=== PATIENT | female | born 1995 | race Caucasian/White ===

== ENCOUNTER 2018-11-20 06:05 | Inpatient (IN) | payer BC ==
[~2018-11-20] VITALS: Ht 152.4 cm; Wt 52.7 kg
[~2018-11-20 06:05] MED LIST: HYDACE5 PO
[2018-11-20] MEDS ORDERED: Verotin-Gr Cap1 EACH (06:16)
[2018-11-20 06:23] LABS: BASOPHILS ABSOLUTE AUTO 0.02 K/mm3 (0.00-0.23); BASOPHILS PERCENT AUTO 0 % (0-2); EOSINOPHILS ABSOLUTE AUTO 0.07 K/mm3 (0.00-0.68); EOSINOPHILS PERCENT AUTO 1 % (0-6); Hematocrit 32.2 % (33.0-51.0); Hemoglobin 10.9 g/dL (11.5-16.0); IMMATURE GRAN ABSOLUTE AUTO 0.14 K/mm3 (0.00-0.10); IMMATURE GRAN PERCENT AUTO 1 % (0-1); LYMPHOCYTES ABSOLUTE AUTO 1.85 K/mm3 (0.84-5.20); LYMPHOCYTES PERCENT AUTO 16 % (21-46); MONOCYTES ABSOLUTE AUTO 0.66 K/mm3 (0.16-1.47); MONOCYTES PERCENT AUTO 6 % (4-13); Mean Corpuscular HGB 31.2 pg (26.0-34.0); Mean Corpuscular HGB Conc 33.9 g/dL (31.5-36.5); Mean Corpuscular Volume 92 fL (80-100); Mean Platelet Volume 10.7 fL (9.1-12.4); NEUTROPHILS ABSOLUTE AUTO 8.73 K/mm3 (1.96-9.15); NEUTROPHILS PERCENT AUTO 76 % (41-73); Platelet Count 228 K/mm3 (150-400); RDW Standard Deviation 42.9 fL (35.1-46.3); Red Blood Cell Count 3.49 M/mm3 (3.80-5.20); White Blood Cell Count 11.47 K/mm3 (4.00-11.30)
[2018-11-21] MEDS ORDERED: IBUP800 (08:31)
--- NOTE | 2018-11-21 09:13 | NUR ---
UP TO AMBULATE WITH ASSIST. PP VOID #2. PT FEELS BETTER AMBULATING, STATES CAN DO ALONE NOW.
[2018-11-22 06:07] LABS: BASOPHILS ABSOLUTE AUTO 0.04 K/mm3 (0.00-0.23); BASOPHILS PERCENT AUTO 0 % (0-2); EOSINOPHILS PERCENT AUTO 1 % (0-6); Hematocrit 25.9 % (33.0-51.0); Hemoglobin 8.5 g/dL (11.5-16.0); IMMATURE GRAN ABSOLUTE AUTO 0.13 K/mm3 (0.00-0.10); IMMATURE GRAN PERCENT AUTO 1 % (0-1); LYMPHOCYTES ABSOLUTE AUTO 2.36 K/mm3 (0.84-5.20); LYMPHOCYTES PERCENT AUTO 18 % (21-46); MONOCYTES ABSOLUTE AUTO 0.84 K/mm3 (0.16-1.47); MONOCYTES PERCENT AUTO 6 % (4-13); Mean Corpuscular HGB 30.6 pg (26.0-34.0); Mean Corpuscular HGB Conc 32.8 g/dL (31.5-36.5); Mean Corpuscular Volume 93 fL (80-100); NEUTROPHILS ABSOLUTE AUTO 9.91 K/mm3 (1.96-9.15); NEUTROPHILS PERCENT AUTO 74 % (41-73); Platelet Count 173 K/mm3 (150-400); RDW Standard Deviation 44.2 fL (35.1-46.3); Red Blood Cell Count 2.78 M/mm3 (3.80-5.20); White Blood Cell Count 13.38 K/mm3 (4.00-11.30)
--- NOTE | 2018-11-22 10:05 | NUR ---
D/C HOME WITH INSTRUCTIONS
== END 2018-11-22 10:25 | disposition home or self-care (01) | DRG 807 ==
LOC: BC 06:05
PROVIDERS: ADMIT Obstetrics & Gynecology
PROC: 10E0XZZ Delivery of Products of Conception, External Approach (ICD-10-PCS; principal; 2018-11-21)
PROC: 3E033VJ Introduction of Other Hormone into Peripheral Vein, Percutaneous Approach (ICD-10-PCS; 2018-11-21)
PROC: 10907ZC Drainage of Amniotic Fluid, Therapeutic from Products of Conception, Via Natural or Artificial Opening (ICD-10-PCS; 2018-11-21)
PROC: 3E0R3BZ Introduction of Anesthetic Agent into Spinal Canal, Percutaneous Approach (ICD-10-PCS; 2018-11-21)
PROC: 00HU33Z Insertion of Infusion Device into Spinal Canal, Percutaneous Approach (ICD-10-PCS; 2018-11-21)
DX: O80 Encounter for full-term uncomplicated delivery (principal); Z37.0 Single live birth; Z3A.39 39 weeks gestation of pregnancy
CPT/HCPCS: 36415; 51702; 85025; J0290; J2001; J2405; J2590; J3010; J7120

== ENCOUNTER → 2019-08-22 | Outpatient (CLI) | payer BC ==
[~2019-08-22] MED LIST changes: +IBUP800; +Verotin-Gr Cap1 EACH
[2019-08-26 13:09] LABS: CHLAMYDIA TRACHOMATIS, NAA Negative (Negative); NEISSERIA GONORRHOEAE, NAA Negative (Negative)
== END ==
LOC: LAB 12:54 → LAB SHORT 12:54 → LAB FUT 08-22 11:45
PROVIDERS: Registered Nurse Community Health
DX: Z34.91 Encounter for supervision of normal pregnancy, unspecified, first trimester (principal)
CPT/HCPCS: 87491; 87591

== ENCOUNTER 2019-09-13 08:02 | Day surgery (SDC) | payer BC ==
[~2019-09-13] VITALS: Ht 152.4 cm; Wt 44.2 kg
[~2019-09-13 08:02] MED LIST changes: -IBUP800; +IBUP800 PO; -Verotin-Gr Cap1 EACH; +Verotin-Gr Cap1 EACH PO
--- NOTE | 2019-09-13 09:01 | NUR ---
Ambulatory in Day Surgery History, Chart, Medications and Allergies reviewed before start of procedure. Lungs clear T/O to Auscultation. Patient States Post-Procedure ride home has been arranged. Pre-Op teaching done. Pt verbalizes understanding. [place] RING AND NECKLACE REMOVED, PLACED IN BAG AND GIVEN TO .
--- NOTE | 2019-09-13 11:57 | NUR ---
Patient up to Ambulate independently. Gait steady. Discharge instructions reviewed with patient AND PT'S . Patient verbalizes understanding. Copy given to patient to take home. Discharged via wheelchair to private car for ride home.
--- NOTE | 2019-09-16 10:26 | NUR ---
09/16/19 1026 Bre Blue VERIFICATIONS: EDIT CHART.
== END 2019-09-13 11:45 | disposition home or self-care (01) ==
LOC: ORSCMMR 08:02 → ORD 09:45 → ORSCMMR 11:45
PROVIDERS: Obstetrics & Gynecology
PROC: 10D17ZZ Extraction of Products of Conception, Retained, Via Natural or Artificial Opening (ICD-10-PCS; principal; 2019-09-13 09:45)
DX: O02.1 Missed abortion (principal)
CPT/HCPCS: 86850; 86900; 86901; 88305; J0690; J1100; J1885; J2210; J2250; J2370; J2405; J2704; J3010; J7120

== ENCOUNTER → 2020-01-28 | Outpatient (CLI) | payer BC ==
[2020-01-30 23:10] LABS: CHLAMYDIA TRACHOMATIS, NAA Negative (Negative); NEISSERIA GONORRHOEAE, NAA Negative (Negative)
== END ==
LOC: LAB SHORT 10:44 → LAB UCHC 10:44
PROVIDERS: Registered Nurse Community Health
DX: Z34.81 Encounter for supervision of other normal pregnancy, first trimester (principal)
CPT/HCPCS: 87491; 87591

== ENCOUNTER → 2020-07-30 | Outpatient (CLI) | payer BC ==
[~2020-07-30] MED LIST changes: +DOCU100 PO
== END ==
LOC: PLD 18:30 → LAB SHORT 18:30
DX: Z34.91 Encounter for supervision of normal pregnancy, unspecified, first trimester (principal)
CPT/HCPCS: 87081; 87150

== ENCOUNTER 2020-08-14 04:58 | Inpatient (IN) | payer BC ==
[~2020-08-14] VITALS: Ht 152.4 cm; Wt 54.5 kg
[~2020-08-14 04:58] MED LIST changes: -DOCU100 PO
[2020-08-14 05:52] LABS: BASOPHILS ABSOLUTE AUTO 0.01 K/mm3 (0.00-0.23); BASOPHILS PERCENT AUTO 0 % (0-2); EOSINOPHILS ABSOLUTE AUTO 0.06 K/mm3 (0.00-0.68); EOSINOPHILS PERCENT AUTO 1 % (0-6); Hematocrit 29.6 % (33.0-51.0); IMMATURE GRAN ABSOLUTE AUTO 0.07 K/mm3 (0.00-0.10); IMMATURE GRAN PERCENT AUTO 1 % (0-1); LYMPHOCYTES ABSOLUTE AUTO 1.39 K/mm3 (0.84-5.20); LYMPHOCYTES PERCENT AUTO 16 % (21-46); MONOCYTES ABSOLUTE AUTO 0.55 K/mm3 (0.16-1.47); MONOCYTES PERCENT AUTO 6 % (4-13); Mean Corpuscular HGB 29.1 pg (26.0-34.0); Mean Corpuscular HGB Conc 33.8 g/dL (31.5-36.5); Mean Corpuscular Volume 86 fL (80-100); Mean Platelet Volume 10.9 fL (9.1-12.4); NEUTROPHILS ABSOLUTE AUTO 6.71 K/mm3 (1.96-9.15); NEUTROPHILS PERCENT AUTO 76 % (41-73); Platelet Count 271 K/mm3 (150-400); RDW Coefficient Variation 12.8 % (11.7-14.2); RDW Standard Deviation 39.6 fL (35.1-46.3); Red Blood Cell Count 3.44 M/mm3 (3.80-5.20); White Blood Cell Count 8.79 K/mm3 (4.00-11.30)
--- NOTE | 2020-08-14 22:48 | NUR ---
RN CALLED AND HAD BEEN HOLDING CPAP ON . RT TOOK OVER CPAP. BABY HAS RETRACTIONS AND RR 55. GOOD TONE AND PINK. AFTER 2 MIN, CPAP TRIALED OFF. PT STARTED TO HAVE STRONG CRY AND MILD RETRACTIONS, NO NASAL FLARING. AFTER 2 MIN, PT MAINTAINED STRONG CRY AND RR 50. BABY PLACED ON MOM FOR SKIN TO SKIN. RN TO CALL IF NEEDED.
--- NOTE | 2020-08-15 04:23 | NUR ---
BLEEDING BLEEDING DURING 2 HOUR RECOVERY WAS SCANT, FUNDUS FIRM WITH AND WITHOUT MASSAGE. AFTER RECOVERY, PT STATES SHE FELT LIKE THERE WAS A LOT OF LIQUID COMING OUT, MODERATE BLEEDING WITH SMALL CLOTS EXPELLED, FUNDUS FIRM. PT STATED AGAIN SHE FELT BLEEDING. LARGE AMOUNT OF BLEEDING AND LARGE CLOTS EXPELLED, FIRM FUNDUS. PER ORDERS, 0.2 MG METHERGINE IM GIVEN ALONG WITH 800 MCG CYTOTEC GIVEN RECTALLY, ALONG WITH KEEPING MY CHARGE NURSE PRIYANK BURKS UPDATED THROUGH THIS PROCESS. BLEEDING SLOWED BUT CALL TO PROVIDER WAS WARRENTED FOR NEXT STEPS. TELEPHONE ORDER TO HANG ANOTHER BAG OF PITOCIN, CALL IF BLEEDING ISN'T REGULATED AND PROVIDER TO COME IN. BLEEDING SLOWED SIGNIFICANTLY WITH THESE INTERVENTIONS. BP'S STAYED STABLE, BIOX APPLIED TO PATIENT, WARM BLANKET PROVIDED AND HEAT TURNED UP IN ROOM. PADS WEIGHED WITH 721 GRAMS. TOTAL OF 921 GRAMS QBL (200 FROM DELIVERY AND 721 FROM BLEEDING) PT'S FUNDUS IS FIRM AND BLEEDING IS BACK TO SCANT. WILL CONTINUE TO MONITOR.
[2020-08-15 06:04] LABS: Hematocrit 25.3 % (33.0-51.0); Hemoglobin 8.3 g/dL (11.5-16.0); Mean Corpuscular HGB 28.7 pg (26.0-34.0); Mean Corpuscular HGB Conc 32.8 g/dL (31.5-36.5); Mean Corpuscular Volume 88 fL (80-100); Mean Platelet Volume 11.1 fL (9.1-12.4); Platelet Count 187 K/mm3 (150-400); RDW Coefficient Variation 12.8 % (11.7-14.2); RDW Standard Deviation 40.9 fL (35.1-46.3); Red Blood Cell Count 2.89 M/mm3 (3.80-5.20); White Blood Cell Count 12.05 K/mm3 (4.00-11.30)
[2020-08-15] MEDS ORDERED: DOCU100 PO (07:05)
[2020-08-15] MEDS ORDERED: IBUP800 PO (07:06)
--- NOTE | 2020-08-15 16:16 | NUR ---
DISCHARGE BOARDER PT EDUCATED ON AND RECEIVED PRINTED DISCHARGE INSTRUCTIONS AND VERBALIZED AN UNDERSTANDING. NO NEW RX. IV DC'D. PT DISCHARGING TO BOARDER STATUS WITH BABY. NOC RN TO SCHEDULE PPFU APPOINTMENT AFTER NBS COMPLETE AND TSB COMPLETED.
== END 2020-08-15 16:28 | disposition home or self-care (01) | DRG 807 ==
LOC: OBS 04:58 → BC 05:10
PROVIDERS: ADMIT Family Medicine
PROC: 10907ZC Drainage of Amniotic Fluid, Therapeutic from Products of Conception, Via Natural or Artificial Opening (ICD-10-PCS; principal; 2020-08-15)
PROC: 10E0XZZ Delivery of Products of Conception, External Approach (ICD-10-PCS; 2020-08-15)
PROC: 3E033VJ Introduction of Other Hormone into Peripheral Vein, Percutaneous Approach (ICD-10-PCS; 2020-08-15)
PROC: 3E0R3BZ Introduction of Anesthetic Agent into Spinal Canal, Percutaneous Approach (ICD-10-PCS; 2020-08-15)
PROC: 00HU33Z Insertion of Infusion Device into Spinal Canal, Percutaneous Approach (ICD-10-PCS; 2020-08-15)
DX: O26.893 Other specified pregnancy related conditions, third trimester (principal); Z37.0 Single live birth; Z20.822 Contact with and (suspected) exposure to COVID-19; O90.81 Anemia of the puerperium; R10.2 Pelvic and perineal pain; Z3A.39 39 weeks gestation of pregnancy
CPT/HCPCS: 36415; 51702; 85025; 85027; 86850; 86900; 86901; 90707; A9270; J1885; J2001; J2210; J2405; J2590; J3010; J7120

== ENCOUNTER → 2020-10-17 | Outpatient (CLI) | payer BC ==
[~2020-10-17] MED LIST changes: +DOCU100 PO
== END | disposition home or self-care (01) ==
LOC: LAB SHORT 17:30
DX: N39.0 Urinary tract infection, site not specified (principal)
CPT/HCPCS: 87077; 87086; 87186

== ENCOUNTER → 2021-12-13 | Outpatient (CLI) | payer BC, OTHER | LOC: LAB 18:55 → LAB SHORT 18:55 | PROVIDERS: Registered Nurse Community Health | DX: Z12.4 Encounter for screening for malignant neoplasm of cervix (principal) | CPT/HCPCS: G0123 ==